=== PATIENT | male | born 1955 | race Caucasian/White ===

== ENCOUNTER → 2017-10-04 | Outpatient (CLI) | payer OTHER ==
--- NOTE | ~2017-10-04 | SLE ---
[facility] [address] [place] [address] POLYSOMNOGRAPHY STUDY Name: CLARITZA RICE Room #: REG CLBharati M.R.#: [id number] Admission: 10/04/17 Attend Phys: Mario Giron MD Discharge: Date of : 53 Report #: [id number] THIS REPORT FOR: //name// CC: Baljeet Contreras FAM unknown Mario Mack A 61-year-old, height 6 feet, weight 335 pounds. Usually goes to bed 10:30, gets out of bed at 4:00-5:00 a.m. Positive daytime somnolence. COMMENTS: Arrhythmia/PAC noted. BASELINE PORTION: Total sleep time 127 minutes, sleep efficiency 85%. RESPIRATORY SUMMARY: Central apnea 0, obstructive apnea 122, hypopnea 16. Apnea-hypopnea index 65 events per sleep hour. REM AHI - non-REM AHI 65. Respiratory effort related arousal 3.3 events per hour. Supine AHI 55, left lateral 70, right lateral 76. Periodic limb movement with arousal index 2.8 events per sleep hour. Low oxygen saturation 69%, spending 11% of recording time less than 90%. CPAP TITRATION: Titrated at 5, 7, 8, 9, 10 and 12 cm water pressure. At 12 cm water pressure, the patient was seen for 47 minutes of which 45 minutes was in REM sleep. There were 6 hypopneas, apnea-hypopnea index of 7.7 events per sleep hour. Low oxygen saturation 80%. The patient was seen in supine REM sleep. IMPRESSION: 1. Obstructive sleep, apnea/hypopnea, G47.33. 2. Arrhythmia noted. 3. Periodic limb movement with arousal index 2.8 events per sleep hour. SUGGESTIONS: 1. In addition to specific therapy, the patient should be cautioned regarding driving or operating dangerous machinery unless fully alert. 2. The patient should be cautioned regarding the use of respiratory depressants. 3. Weight loss and TSH per Dr. Giron. 4. Oral appliance or appropriate surgery may be considered with appropriate followup. 5. The usual sleep apnea suggestions are recommended. 6. An auto-titrating CPAP between 9 and 14 cm water pressure is initially recommended. During our study, a RespirSynCardia Systemss RobinWear large full facemask was used with heated humidity. [facility] [address] [place] [address] POLYSOMNOGRAPHY STUDY Name: CLARITZA RICE Room #: REG CL M.Brissa.#: [id number] Admission: 10/04/17 Attend Phys: Mario Giron MD Discharge: Date of : 53 Report #: [id number] 7. If signs and symptoms not improved with therapy, further evaluation is recommended. 8. May need to consider a nocturnal desaturation study on CPAP or may require a repeat CPAP titration night depending on above. 9. If signs and symptoms not improved with therapy, further evaluation recommended. Please do not hesitate to contact me if I may be of further assistance. <ELECTRONICALLY SIGNED> By: Baljeet Contreras MD 10/07/17 [id number] [id number] Baljeet Contreras MD /nt
== END ==
LOC: SLEEPLAB 15:50
DX: G47.33 Obstructive sleep apnea (adult) (pediatric) (principal); I49.9 Cardiac arrhythmia, unspecified